=== PATIENT | male | born 1950 | race Caucasian/White ===

== ENCOUNTER 2018-12-29 11:13 | Outpatient (CLI) | payer MEDICARE, SELFPAY ==
[2018-12-29 12:22] LABS: BUN 19 mg/dL (7-18); CREATININE 1.08 mg/dL (0.70-1.30); Calcium 8.5 mg/dL (8.5-10.1); Chloride 102 mmol/L (98-107); Glucose 120 mg/dL (70-100); Potassium 4.2 mmol/L (3.5-5.1); Sodium 141 mmol/L (136-145)
== END 2018-12-29 11:33 ==
PROVIDERS: PCP Family Medicine; Visit Provider Family Medicine
DX: G89.4 Chronic pain syndrome (principal)
CPT/HCPCS: 36415; 80048

== ENCOUNTER 2019-09-06 16:43 | Emergency (ER) | payer MEDICARE, SELFPAY ==
[2019-09-06 16:48] VITALS: BP 151/77; PULSE 83; RESP 18; TEMP 37.1; O2SAT 98
--- NOTE | 2019-09-06 17:04 | W.ED.GENAD ---
Discharge Plan Disposition Patient Disposition: HOME Condition: Stable Discharge Details Chief Complaint: Cellulitis Clinical Impression: Cellulitis of face Primary Care Provider: Clark Odom ED Provider: Eliu Banerjee Home Meds and New Rx's Prescriptions: New amoxicillin-pot clavulanate 875-125 mg tablet 1 tab PO BID 10 Days Qty: 20 RF: 0 Continued hydrocodone-acetaminophen 5-325 mg tablet 1 tab PO BID MDD 2 tabs PRN (Reason: pain) Qty: 60 RF: 0 Pulmicort Flexhaler 180 mcg/actuation aerosol powdr breath activated 180 mcg Inhalation BID PRNRF: 0 triamcinolone acetonide 0.1 % cream 1 applic Topical BID PRN (Reason: dermatitis) Qty: 30 RF: 4 albuterol sulfate [ProAir HFA] 8.5 GM HFA aerosol inhaler 2 puff Inhalation Q6H PRN Qty: 1 RF: 4 (DME) Aerochamber Plus Flow-Vu 1 EACH spacer 1 ea Miscellaneous PRN Qty: 2 RF: 0 Discharge Instructions Instructions: Cellulitis (ED) Additional Instructions: Follow-up with Dr. Odom if not improving in 7 days time. Apply mupirocin ointment to affected area of face twice daily Take antibiotics as prescribed. I recommend you have once daily, midday live culture yogurt or an tjqz-hzl-ywqquel probiotic while on the Augmentin. May apply warm heat to area to speed healing. Return to the emergency department for any acute concerns. Medical Decision Making 69-year-old male with chronically dry skin which he typically treats with topical ointments and oils. Now here with day 2 of left face swelling primarily at his cheek with associated overlying erythema. Is not had fever, chills, no vesicular or blistering rash. No change to voice, no intraoral lesions. His vital signs are notable for mild elevation of the blood pressure but otherwise normal. Consistent with an early cellulitis. He is not a diabetic and it is not well demarcated like erysipelas. I will treat with topical mupirocin as well as a course of Augmentin. He will follow-up with Dr. Odom in clinic if not improving, return for worsening. HPI General Mode of arrival: ambulatory. Date/Time Provider Initiated Documentation: 09/06/19 16:45. Limitations to Documentation: no limitations. Information obtained by: patient. History of Present Illness 69 year old M presents to the emergency department with the chief complaint of Left face erythema at cheek, described as mild, Quality is described as constant, and is localized to the face and left. Patient reports no radiation. Patient started experiencing this day(s) and it has been constant. No relieving factors improve symptom(s), No exacerbating factors reported . Patient notes no other symptoms. and other (No blistering or vesicles, no significant pain); denies fever/chills and headaches. Patient did receive the following treatments prior to arrival, none Related Data Home Medications Medication Instructions Recorded Confirmed Aerochamber Plus Flow-Vu #2 unit 08/28/17 04/09/19 albuterol sulfate [ProAir HFA] 2 puff INHALATION Q6H PRN #1 08/28/17 09/06/19 inhaler budesonide 180 mcg/actuation 180 mcg INHALATION BID PRN inhaler 07/03/18 04/09/19 breath activated powder inhaler triamcinolone acetonide 0.1 % 1 applic TOPICAL BID PRN #30 gm 07/03/18 09/06/19 topical cream hydrocodone 5 mg-acetaminophen 325 1 tab PO BID PRN #60 tab MDD 2 tabs 07/10/19 09/06/19 mg tablet amoxicillin-pot clavulanate 1 tab PO BID 10 Days #20 tab 09/06/19 Previous Rx's Medication Instructions Recorded Aerochamber Plus Flow-Vu #2 unit 08/28/17 albuterol sulfate [ProAir HFA] 2 puff INHALATION Q6H PRN #1 08/28/17 inhaler triamcinolone acetonide 0.1 % 1 applic TOPICAL BID PRN #30 gm 07/03/18 topical cream hydrocodone 5 mg-acetaminophen 325 1 tab PO BID PRN #60 tab MDD 2 tabs 07/10/19 mg tablet amoxicillin-pot clavulanate 1 tab PO BID 10 Days #20 tab 09/06/19 Allergies Allergy/AdvReac Type Severity Reaction Status Date / Time prednisone AdvReac Intermediate hair Verified 09/06/19 16:52 loss/lethargic codeine AdvReac Mild makes me a Verified 09/06/19 16:52 little hot General Stated Complaint: Cellulitis DEANNA: 3 Review of Systems Narrative: 6 systems reviewed and otherwise negative. No change to vision, no oral pain or swelling. [facility] Family History Mother , AGE 73 Substance abuse VALIUM Essential hypertension Depression Heart disease Hyperlipidemia Asthma Father , AGE 72 Alcohol abuse Prostate cancer Sister Substance abuse MARIJUANA Depression Hyperlipidemia Schizophrenia Brother Heart disease Asthma Maternal Grandfather Heart disease Stroke Paternal Grandfather Heart disease Maternal Grandmother Diabetes Bladder cancer Paternal Grandmother Heart disease Sister Substance abuse MARIJUANA Anxiety Smoker Brother Heart disease Stroke MINI STROKE Brother , AGE 67 No problems noted. Brother , AGE 70 Agent orange exposure Asthma Social History (Updated 10/08/18 @ 08:11 by Elizabet Batista) Smoking/Tobacco Use Status: Never Second Hand Exposure: Yes Alcohol Intake: former Drug use: Current Sobriety Substance use type: former substance user Date of last use: FORMER NARIJUANA USE;AGE 36 10/04/17 THINKING ABOUT IT AGAIN Caregiver/Support person: No Household members: none Housing: apartment Pets and animals: No Sexually active: No Do you think of yourself as: bisexual Current gender identity: male Duration: 60-90 minutes/day Frequency: 5-6 times per week Gilda/Lutheran: Congregation Special gilda needs: No Do you feel safe at home: Yes Exam Narrative Exam Narrative: GEN: awake, alert, oriented 3. Pleasant, well groomed, interactive. HEAD: Normocephalic, atraumatic ENT: Mucous membranes moist, oropharynx unremarkable, edentulous. Left cheek with erythema and mild induration, no pointing fluctuance, no vesicles. EYES: PERRL, EOMI NECK: Full ROM, no RANDI, no menigismus CHEST/RESP: Nontender, clear to auscultation bilateral, no wheeze/rhonchi/rales CARDIOVASCULAR: RRR, no murmur, rub rebekah. 2+ Rad pulse bilateral ABDOMEN: Soft, nontender, no mass. +Bowel sounds EXT: Full ROM, no edema, no rash Neuro: Grossly normal neurologic exam, conversant, interactive. Psych: Speech fluent, thoughts congruent, affect normal Course Vital Signs Vital signs: Vital Signs Temperature 37.1 C 09/06/19 16:48 Pulse 83 09/06/19 16:48 Respiratory Rate 18 09/06/19 16:48 Blood Pressure 151/77 H 12/22/19 16:48 Pulse Oximetry 98 09/06/19 16:48 Temperature 37.1 C 09/06/19 16:48 Temperature Source Skin 09/06/19 16:48 Pulse 83 09/06/19 16:48 Respiratory Rate 18 09/06/19 16:48 Respiratory Effort Non-Labored 09/06/19 16:51 Blood Pressure 151/77 H 09/06/19 16:48 Blood Pressure Position Sitting 09/06/19 16:48 Pulse Oximetry 98 09/06/19 16:48 Oxygen Delivery Method Room Air 09/06/19 16:48 Oxygen Flow Rate 0 09/06/19 16:48 Pain Level 4 09/06/19 16:48
[2019-09-06] MEDS: Amox. 875/Clav. 125, 2 TABS/BTL 1 TAB PO (17:15)
== END 2019-09-06 17:25 | disposition home or self-care (01) ==
PROVIDERS: Emergency Provider Emergency Medicine; PCP Family Medicine
DX: L03.211 Cellulitis of face (principal)
CPT/HCPCS: 99283

== ENCOUNTER 2020-06-23 15:11 | Emergency (ER) | payer MEDICARE, SELFPAY ==
--- NOTE | 2020-06-23 15:15 | DI.US_ITS ---
EXAM: US LOWER EXTREMITY VENOUS RT CLINICAL HISTORY: RLE swelling, R/O DVT. TECHNIQUE: Ultrasound performed using standard protocol. COMPARISON: No exams were available for comparison FINDINGS: Duplex venous ultrasound was performed according to the usual protocol. The deep veins are freely com pressible throughout and there is normal flow augmentation with manual calf compression. 2D and Doppl er evaluation are unremarkable. IMPRESSION: No evidence of deep venous thrombosis of the right lower extremity. DATA REPOSITORY:
[2020-06-23 15:16] VITALS: BP 146/79; PULSE 81; RESP 16; TEMP 36.3; O2SAT 100
--- NOTE | 2020-06-23 15:34 | ED.GENADUL_ITS ---
Discharge Plan Disposition Patient Disposition: HOME Condition: Improving Discharge Details Clinical Impression: Cellulitis of right leg Primary Care Provider: John Oakes ED Provider: Eliu Banerjee Home Meds and New Rx's Prescriptions: New cephalexin 500 mg capsule 500 mg PO TID 7 Days Qty: 21 RF: 0 Continued hydrocodone-acetaminophen 5-325 mg tablet 1 tab PO BID MDD 2 tabs PRN (Reason: pain) Qty: 60 RF: 0 Pulmicort Flexhaler 180 mcg/actuation aerosol powdr breath activated 180 mcg Inhalation BID PRNRF: 0 triamcinolone acetonide 0.1 % cream 1 applic Topical BID PRN (Reason: dermatitis) Qty: 30 RF: 4 albuterol sulfate [ProAir HFA] 8.5 GM HFA aerosol inhaler 2 puff Inhalation Q6H PRN Qty: 1 RF: 4 (DME) Aerochamber Plus Flow-Vu 1 EACH spacer 1 ea Miscellaneous PRN Qty: 2 RF: 0 Discharge Instructions Instructions: Cellulitis (ED) Additional Instructions: You do not have evidence of a blood clot on today's ultrasound. Please take the antibiotics as prescribed. Elevate the leg above the level heart to reduce swelling. Leave the current dressing in place for 7 days and then remove and may replace with simple Band-Aid. Return if you develop chest pain, shortness of breath, a fever, or any other acute concerns. Medical Decision Making 70-year-old male presents from home with right lower extremity erythema and swelling over days time. He noticed a ulcerated area that he question could be a spider bite or other insect bite but no known inciting event was appreciated by the patient. He has not had a fever. He has not had chest pain or shortness of breath. He is well-appearing and afebrile. His right lower extremity shows the aforementioned ulceration with surrounding erythema and edema. Differential diagnosis includes cellulitis, must exclude DVT. Screening labs and ultrasound obtained. Patient given a initial dose of Kefzol and a Mepilex dressing with border was placed over the ulcerated area. Labs with white count 8, hematocrit 46, platelets 243. Lactate 1.5. Sodium 142, potassium 3.6, chloride 103, bicarb 30, BUN 15, creatinine 1.2. Ultrasound: No evidence of DVT. Consistent with cellulitis secondary to breakdown of skin from unknown initial event. I will place him on Keflex. He is appropriate for outpatient management and understands indications to return to the ER. HPI General Mode of arrival: ambulatory . Date/Time Provider Initiated Documentation: 06/23/20 15:23 . Limitations to Documentation: no limitations . Information obtained by: patient . History of Present Illness 70 year old M presents to the emergency department with the chief complaint of Right leg ankle wound, now swollen and erythematous., Quality is described as dull, and is localized to the right and lower extremity. Patient reports no radiation. Patient started experiencing this day(s) and it has been constant. No relieving factors improve symptom(s), No exacerbating factors reported . Patient notes denies chest pain, fever/chills and shortness of breath. Patient did receive the following treatments prior to arrival, none Related Data Home Medications Medication Instructions Recorded Confirmed Aerochamber Plus Flow-Vu #2 unit 08/28/17 03/31/20 albuterol sulfate [ProAir HFA] 2 puff INHALATION Q6H PRN #1 08/28/17 06/23/20 inhaler budesonide 180 mcg/actuation 180 mcg INHALATION BID PRN inhaler 07/03/18 06/23/20 breath activated powder inhaler triamcinolone acetonide 0.1 % 1 applic TOPICAL BID PRN #30 gm 07/03/18 06/23/20 topical cream hydrocodone 5 mg-acetaminophen 325 1 tab PO BID PRN #60 tab MDD 2 tabs 03/31/20 06/23/20 mg tablet cephalexin 500 mg PO TID 7 Days #21 cap 06/23/20 Previous Rx's Medication Instructions Recorded Aerochamber Plus Flow-Vu #2 unit 08/28/17 albuterol sulfate [ProAir HFA] 2 puff INHALATION Q6H PRN #1 08/28/17 inhaler triamcinolone acetonide 0.1 % 1 applic TOPICAL BID PRN #30 gm 07/03/18 topical cream hydrocodone 5 mg-acetaminophen 325 1 tab PO BID PRN #60 tab MDD 2 tabs 03/31/20 mg tablet cephalexin 500 mg PO TID 7 Days #21 cap 06/23/20 Allergies Allergy/AdvReac Type Severity Reaction Status Date / Time prednisone AdvReac Intermediate hair Verified 06/23/20 15:21 loss/lethargic codeine AdvReac Mild makes me a Verified 06/23/20 15:21 little hot General Stated Complaint: Cellulitis DEANNA: 3 Review of Systems Narrative: No chest pain or shortness of breath. No palpitations. No fever or chills. 6 systems reviewed and otherwise negative [facility] Family History Mother , AGE 73 Substance abuse VALIUM Essential hypertension Depression Heart disease Hyperlipidemia Asthma Father , AGE 72 Alcohol abuse Prostate cancer Sister , age 59 Substance abuse MARIJUANA Depression Hyperlipidemia Schizophrenia Brother Heart disease Asthma Maternal Grandfather Heart disease Stroke Paternal Grandfather Heart disease Maternal Grandmother Diabetes Bladder cancer Paternal Grandmother Heart disease Sister , age 57 Substance abuse MARIJUANA Anxiety Smoker Brother Heart disease Stroke MINI STROKE Brother , AGE 67 No problems noted. Brother , AGE 70 Agent orange exposure Asthma Social History Smoking/Tobacco Use Status: Never Second Hand Exposure: Yes Alcohol Intake: former Drug use: Current Sobriety Substance use type: former substance user Date of last use: FORMER NARIJUANA USE;AGE 36 10/04/17 THINKING ABOUT IT AGAIN Caregiver/Support person: No Household members: none Housing: apartment Communication Needs: None Do you need help understanding health information?: Never Pets and animals: No Sexually active: No Do you think of yourself as: straight/heterosexual Current gender identity: male What is your relationship status?: never How often do you talk on the phone with friends or family?: three or more times per week How often do you get together with friends or relatives?: three or more times per week How often do you attend moravian or druze services?: decline to answer Do you belong to any clubs or organized social groups?: no Panel score (0-1 are the most socially isolated patients): 1 What type of physical activity do you participate in: other Duration: decline to answer Frequency: decline to answer Gilda/Denominational: Scientologist Special gilda needs: No Seatbelt use: sometimes 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 Pleasant, well groomed, interactive. HEAD: Normocephalic, atraumatic ENT: Mucous membranes moist, oropharynx unremarkable, External ear exam unremarkable EYES: PERRL, EOMI NECK: Full ROM, no RANDI, no menigismus CHEST/RESP: Nontender, clear to auscultation bilateral, no wheeze/rhonchi/rales CARDIOVASCULAR: RRR, no murmur, rub rebekah. 2+ Rad pulse bilateral ABDOMEN: Soft, nontender, no mass. +Bowel sounds EXT: Full ROM, right lower lateral leg with scabbed over area of ulceration measuring approximately 2 cm in diameter. There is surrounding edematous changes and warm, blanching erythema of the leg below the knee. No cords appreciated. Neuro: Grossly normal neurologic exam, conversant, interactive. Psych: Speech fluent, thoughts congruent, affect normal Course Vital Signs Vital signs: Vital Signs Temperature 36.3 C L 06/23/20 15:16 Pulse 81 06/23/20 15:16 Respiratory Rate 16 06/23/20 15:16 Blood Pressure 146/79 H 06/23/20 15:16 Pulse Oximetry 100 06/23/20 15:16 Temperature 36.3 C L 06/23/20 15:16 Pulse 81 06/23/20 15:16 Respiratory Rate 16 06/23/20 15:16 Respiratory Effort Non-Labored 06/23/20 15:19 Blood Pressure 146/79 H 06/23/20 15:16 Blood Pressure Position Sitting 06/23/20 15:16 Pulse Oximetry 100 06/23/20 15:16 Oxygen Delivery Method Room Air 06/23/20 15:16 Oxygen Flow Rate 0 06/23/20 15:16 Pain Level 3 06/23/20 15:16 Lab/Test Results Lab/Test Results: 06/23/20 15:26 Blood Blood Culture - Pending 06/23/20 15:26 Blood Blood Culture - Pending
[2020-06-23 15:48] LABS: Lactate 1.5 mmol/L (0.6-1.4)
[2020-06-23 15:50] LABS: Abs Immature Grans 0.02 10^3/uL (0.0-0.06); Absolute Basophil Count 0.03 10^3/uL (0.0-0.2); Absolute Eosinophil Count 0.24 10^3/uL (0.0-0.7); Absolute Lymphocyte Count 1.72 10^3/uL (1.2-3.4); Absolute Neutrophil Count 5.43 10^3/uL (1.2-6.7); Basophils % 0.4; Eosinophils % 2.9; Immature Grans % 0.2; Lymphocytes % 21.1; MCH 28.2 pg (27.0-33.0); MCHC 32.6 % (32.0-36.0); MCV 86.6 fL (80-95); MPV 9.7 fL (8.0-11.0); Monocytes % 8.6; Neutrophils % 66.8; Nucleated RBC 0 %; Platelet Count 243 10^3/uL (130-400); RBC 5.31 10^6/uL (4.36-5.78); RDW 13.3 % (11.8-14.1); RDW-SD 42.2 fL; WBC 8.14 10^3/uL (4.4-10.8)
--- NOTE | 2020-06-23 15:54 | NUR.NOTE ---
Nursing Note:Mepilex 4x4 with border applied to right lateral leg per MD. Dated with 06/23/20 and initials.
[2020-06-23 16:04] LABS: ALT 30 U/L (16-63); AST 19 U/L (15-37); Albumin 3.8 g/dL (3.4-5.0); Alkaline Phosphatase 73 U/L (46-116); Anion Gap 8.4 mmol/L (3-11); BUN 15 mg/dL (7-18); Bilirubin, Total 0.6 mg/dL (0.2-1.0); CO2 30.6 mmol/L (21.0-32.0); CREATININE 1.25 mg/dL (0.70-1.30); Calcium 8.7 mg/dL (8.5-10.1); Chloride 103 mmol/L (98-107); Estimated GFR 57.27 (mL/min/1.73m2); Glucose 118 mg/dL (74-106); Magnesium 2.1 mg/dL (1.8-2.4); Potassium 3.6 mmol/L (3.5-5.1); Sodium 142 mmol/L (136-145); Total Protein 7.6 g/dL (6.4-8.2)
[2020-06-23] MEDS: ceFAZolin 1 GM/50 ML BAG IVPB (16:28)
[2020-06-23] MEDS: Normal Saline Flush 10 ML SYR IVP (16:29)
[2020-06-23 16:55] VITALS: BP 122/65; PULSE 69; RESP 16; TEMP 36.4; O2SAT 98
--- NOTE | 2020-06-30 16:03 | DI.VRAD_ITS ---
PROCEDURE INFORMATION: Exam: US Duplex Right Lower Extremity Veins, Limited Exam date and time: 06/23/2020 3:27 PM Age: 70 years old Clinical indication: Swelling (edema) of limb; Lower extremity, right TECHNIQUE: Imaging protocol: Real-time Duplex ultrasound of the Right Lower Extremity with 2-D jang scale, color Doppler flow and spectral waveform analysis with image documentation. Limited exam was focused on the right lower extremity veins. COMPARISON: No relevant prior studies available. FINDINGS: Right deep veins: Unremarkable. The common femoral, femoral, proximal profunda femoral and popliteal veins are patent without thrombus. Normal Doppler waveforms. Normal compressibility and/or augmentation response. Right superficial veins: Unremarkable. Saphenofemoral junction is patent without thrombus. Soft tissues: Mild edema in the right mid calf.. IMPRESSION: No evidence of deep vein thrombosis. Dictated and Authenticated by: Kaushal Busch MD. Ordering:OG Simons MD
== END 2020-06-23 17:00 | disposition home or self-care (01) ==
LOC: ER 16:28
PROVIDERS: Registered Nurse Emergency; Emergency Provider Emergency Medicine; PCP Family Medicine
DX: L03.115 Cellulitis of right lower limb (principal); L97.311 Non-pressure chronic ulcer of right ankle limited to breakdown of skin
CPT/HCPCS: 36415; 80053; 87040; 96365; 99284; 83605; 83735; 85025; 93971; J0690

== ENCOUNTER 2020-07-05 09:29 | Outpatient (REF) | payer MEDICARE, SELFPAY | END 2020-07-05 09:49 | LOC: LBN 09:29 | PROVIDERS: PCP Family Medicine; Visit Provider Family Medicine | DX: L03.115 Cellulitis of right lower limb (principal) | CPT/HCPCS: 87077; 87070; 87186; 87205 ==

== ENCOUNTER 2021-02-03 09:59 | Emergency (ER) | payer MEDICARE, SELFPAY ==
[2021-02-03 10:05] VITALS: BP 157/86; PULSE 78; RESP 18; TEMP 36.5; O2SAT 98
--- NOTE | 2021-02-03 10:34 | W.ED.GENAD ---
Discharge Plan Disposition Patient Disposition: HOME Condition: Good Discharge Details Clinical Impression: Rash and nonspecific skin eruption Primary Care Provider: Mery Peter ED Provider: Dana Archibald Home Meds and New Rx's Prescriptions: No Action albuterol sulfate [ProAir HFA] 90 mcg/actuation HFA aerosol inhaler 2 puff Inhalation Q6H PRN Qty: 1 RF: 4 valacyclovir [Valtrex] 1 gram tablet 1,000 mg PO TID Qty: 21 RF: 0 (DME) Aerochamber Plus Flow-Vu 1 EACH spacer 1 ea Miscellaneous PRN Qty: 2 RF: 0 hydrocodone-acetaminophen 5-325 mg tablet 1 tab PO BID MDD 2 tabs PRN (Reason: pain) Qty: 60 RF: 0 triamcinolone acetonide 0.1 % cream 1 applic Topical BID PRN (Reason: dermatitis) Qty: 30 RF: 4 Discharge Instructions Instructions: Acute Rash (ED) Additional Instructions: Continue to use her triamcinolone twice daily for the next 7 to 10 days You may complete your course of acyclovir, this will not harm you Should you have spreading redness, fever, or worsening pain, vision change, no pain, or ear pain, you should return immediately for reevaluation Recommend recheck in 24 to 48 hours Medical Decision Making Patient with lesions to bilateral scalp region, no evidence of shingles or herpetiform rash, no evidence of erysipelas or infection etiology of patient's complaints, nontender, improving with triamcinolone for patient Patient is alert, oriented, of decisional capacity he has no crepitus on exam, he reports that his symptoms are improving with triamcinolone although he will complete his course of acyclovir as he only has 2 days left Follow-up with his primary care physician, there is no evidence of Carranza sign or ocular involvement Patient will follow up with his primary care physician, given the threshold to return with new or worsening complaints Differential Diagnosis Differential Diagnosis: Contact dermatitis, cellulitis, shingles, seborrhea Medical Records Medical records reviewed: Yes I reviewed the patient's medical records. HPI General Mode of arrival: ambulatory. Date/Time Provider Initiated Documentation: 02/03/21 10:06. Limitations to Documentation: no limitations. Information obtained by: patient. HPI Narrative: This 71-year-old male presents with history of eczema. He states that he started rash that started approximately 7 days ago. He states is on the left side of scalp. He did see his doctor 3 days ago and was placed on Valtrex for suspected zoster. If he is unsure as to whether or not actually is shingles. He states he had no pain or paresthesias prior to onset of symptoms. He states that the rash has never been raised. He denies any fever or chills. He otherwise feels quite fine. He has no pain in his ear or nose. He has no pain in his eye. He states he has a history of eczema and frequently have interruptions from this. He states he also has some redness on the right side of his scalp with this. He denies any pruritus. He states he has been using triamcinolone twice daily at home and this is actually improved his symptoms. He denies any known sick contacts people with similar rashes. He denies any headache or spreading rash. Related Data Home Medications Medication Instructions Recorded Confirmed Aerochamber Plus Flow-Vu #2 unit 08/28/17 01/09/21 albuterol sulfate 90 mcg/actuation 2 puff INHALATION Q6H PRN #1 08/09/20 02/03/21 aerosol inhaler inhaler hydrocodone 5 mg-acetaminophen 325 1 tab PO BID PRN #60 tab MDD 2 tabs 01/16/21 02/03/21 mg tablet triamcinolone acetonide 0.1 % 1 applic TOPICAL BID PRN #30 gm 01/27/21 02/03/21 topical cream valacyclovir 1 gram tablet 1,000 mg PO TID #21 tab 02/01/21 02/03/21 Previous Rx's Medication Instructions Recorded Aerochamber Plus Flow-Vu #2 unit 08/28/17 albuterol sulfate 90 mcg/actuation 2 puff INHALATION Q6H PRN #1 08/09/20 aerosol inhaler inhaler hydrocodone 5 mg-acetaminophen 325 1 tab PO BID PRN #60 tab MDD 2 tabs 01/16/21 mg tablet triamcinolone acetonide 0.1 % 1 applic TOPICAL BID PRN #30 gm 01/27/21 topical cream valacyclovir 1 gram tablet 1,000 mg PO TID #21 tab 02/01/21 Allergies Allergy/AdvReac Type Severity Reaction Status Date / Time prednisone AdvReac Intermediate hair Verified 02/03/21 10:11 loss/lethargic codeine AdvReac Mild makes me a Verified 02/03/21 10:11 little hot General Stated Complaint: Cellulitis DEANNA: 5 Review of Systems Narrative: Review of systems obtained x7 aside from where indicated in HPI PFSH Family History Mother , AGE 73 Substance abuse VALIUM Essential hypertension Depression Heart disease Hyperlipidemia Asthma Father , AGE 72 Alcohol abuse Prostate cancer Sister , age 59 Substance abuse MARIJUANA Depression Hyperlipidemia Schizophrenia Brother Heart disease Asthma Maternal Grandfather Heart disease Stroke Paternal Grandfather Heart disease Maternal Grandmother Diabetes Bladder cancer Paternal Grandmother Heart disease Sister , age 57 Substance abuse MARIJUANA Anxiety Smoker Brother Heart disease Stroke MINI STROKE Brother , AGE 67 No problems noted. Brother , AGE 70 Agent orange exposure Asthma Social History Smoking/Tobacco Use Status: Never Second Hand Exposure: Yes Smoking risk assessment performed?: Yes Alcohol Intake: former Drug use: Current Sobriety Substance use type: former substance user Date of last use: FORMER NARIJUANA USE;AGE 36 10/04/17 THINKING ABOUT IT AGAIN Caregiver/Support person: No Household members: none Housing: apartment Communication Needs: None Do you need help understanding health information?: Never Pets and animals: No Sexually active: No Do you think of yourself as: straight/heterosexual Current gender identity: male What is your relationship status?: never How often do you talk on the phone with friends or family?: three or more times per week How often do you get together with friends or relatives?: three or more times per week How often do you attend pentecostalism or spiritism services?: decline to answer Do you belong to any clubs or organized social groups?: no Panel score (0-1 are the most socially isolated patients): 1 What type of physical activity do you participate in: other Duration: decline to answer Frequency: decline to answer Gilda/Methodist: Adventist Special gilda needs: No Seatbelt use: sometimes Drive intox or ride w/intox lumber stacker driver: No Do you feel safe at home: Yes Do you feel safe in your relationship?: Yes Exam Const General: cooperative, comfortable and no acute distress HENMT Head images: 1. Macular rash, nontender, seborrhea over bilateral temples, no vesicles, no petechiae or purpura no lesions to ear or nose no periorbital lesion 2. Eyes Other: No conjunctival injection bilaterally Resp Effort & Inspection: normal respiratory effort Cardio Rate: regular rate Rhythm: regular rhythm Skin Other: see above no crepitus or tenderness on exam Neuro General: patient alert and patient oriented x3 Cranial Nerves: CN's II-XI intact bilaterally Course Vital Signs Vital signs: Vital Signs Temperature 36.5 C 02/03/21 10:05 Pulse 78 02/03/21 10:05 Respiratory Rate 18 02/03/21 10:05 Blood Pressure 157/86 H 02/03/21 10:05 Pulse Oximetry 98 02/03/21 10:05 Temperature 36.5 C 02/03/21 10:05 Temperature Source Skin 02/03/21 10:05 Pulse 78 02/03/21 10:05 Respiratory Rate 18 02/03/21 10:05 Respiratory Effort 02/03/21 10:10 Blood Pressure 157/86 H 02/03/21 10:05 Blood Pressure Position Sitting 02/03/21 10:05 Pulse Oximetry 98 02/03/21 10:05 Oxygen Delivery Method Room Air 02/03/21 10:05 Oxygen Flow Rate 0 02/03/21 10:05 Pain Level 0 02/03/21 10:05
== END 2021-02-03 10:41 | disposition home or self-care (01) ==
PROVIDERS: Emergency Provider Physician Assistant; PCP Nurse Practitioner Family
DX: R21 Rash and other nonspecific skin eruption (principal)
CPT/HCPCS: 99281; 99282

== ENCOUNTER 2021-07-05 17:18 | Outpatient (REF) | payer MEDICARE, SELFPAY ==
[2021-07-07 14:50] LABS: COVID-19 RT-PCR UVMMC Result Negative (Negative)
== END 2021-07-05 17:19 | disposition home or self-care (01) ==
LOC: LBN 17:18
PROVIDERS: Nurse Practitioner Family; PCP Nurse Practitioner Family; Visit Provider Nurse Practitioner Family
DX: Z20.822 Contact with and (suspected) exposure to COVID-19 (principal)
CPT/HCPCS: U0003; U0005

== ENCOUNTER 2021-07-11 11:04 | Emergency (ER) | payer MEDICARE, SELFPAY ==
[2021-07-11 11:18] VITALS: BP 137/67; PULSE 62; RESP 16; TEMP 36.9; O2SAT 98
--- NOTE | 2021-07-11 11:25 | W.ED.GENAD ---
Discharge Plan Disposition Patient Disposition: HOME Condition: Stable Discharge Details Clinical Impression: Contact dermatitis Primary Care Provider: Mery Peter ED Provider: Katt Dukes Home Meds and New Rx's Prescriptions: New cephalexin 500 mg capsule 500 mg PO TID 7 Days Qty: 21 RF: 0 methylprednisolone [Medrol ([place])] 4 mg tablets,dose pack 4 mg PO PER PKG DIR MDD see package directions 6 Days Qty: 21 RF: 0 hydrocortisone 2.5 % cream 1 applic topical TID PRNQty: 30 RF: 0 Continued Narcan 4 mg/actuation spray,non-aerosol 1 spray intranasal Q2-3M PRN (Reason: opioid overdose) Qty: 2 RF: 4 albuterol sulfate [ProAir HFA] 90 mcg/actuation HFA aerosol inhaler 2 puff Inhalation Q6H PRN Qty: 1 RF: 4 (DME) Aerochamber Plus Flow-Vu 1 EACH spacer 1 ea Miscellaneous PRN Qty: 2 RF: 0 triamcinolone acetonide 0.1 % cream 1 applic Topical BID PRN (Reason: dermatitis) Qty: 30 RF: 4 clotrimazole 1 % cream 1 applic topical BID Qty: 90 RF: 2 hydrocodone-acetaminophen 5-325 mg tablet 1 tab PO BID MDD 2 tabs PRN (Reason: pain) Qty: 60 RF: 0 Discharge Instructions Instructions: Dermatitis (ED) Additional Instructions: Try to avoid any direct contact with possible skin irritants including chemicals or prolonged exposure to water as this may worsen your rash. If you need to have contact with chemicals or prolonged contact with water, be sure to wear protective nonadherent dressings directly to your rash with thick overlying rubber gloves. Prescriptions for an oral steroid, and oral antibiotic and topical steroid cream have been sent electronically to your pharmacy. Follow up with your primary care doctor in 1 week as needed. Return to the emergency department with any worsening or new concerning symptoms. 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 Patient has erythematous scaly patches noted to his dorsal and volar hand, some areas minimally tender. No abscess or vesicles. No burrowing lesions. Suspect most likely contact dermatitis. Patient has an adverse reaction to prednisone which causes hair loss and lethargy. Discussed that as he has had no relief with topical steroids, will recommend a short course of oral steroids. Will treat with a Medrol Dosepak which is lower dosage than prednisone. Patient is advised that if he has any adverse reactions to the Medrol Dosepak, to stop taking it. Advised that the most important treatment or preventative measure for his rash is to avoid contact with a potential source if possible, or wear gloves if can't avoid exposure to irritant. Advised to follow up with the primary care doctor for re-evaluation. Usual and customary return precautions given prior to discharge. Medical Records Medical records reviewed: Yes I reviewed the patient's medical records. HPI General Mode of arrival: ambulatory. Date/Time Provider Initiated Documentation: 07/11/21 11:25. Limitations to Documentation: no limitations. Information obtained by: patient. HPI Narrative: Patient is a 71-year-old male who presents with itchy and painful rash to his hands for the past few weeks. 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 He states he has tried using his triamcinolone and anti-fungal cream without relief. Patient denies fever. He states the rash is mainly easy but does feel some pain with scratching at times. Related Data Home Medications Medication Instructions Recorded Confirmed Aerochamber Plus Flow-Vu #2 unit 08/28/17 07/11/21 triamcinolone acetonide 0.1 % 1 applic TOPICAL BID PRN #30 gm 01/27/21 07/11/21 topical cream naloxone 4 mg/actuation nasal spray 1 spray INTRANASAL Q2-3M PRN #2 ea 04/06/21 07/11/21 clotrimazole 1 % topical cream 1 applic TOPICAL BID #90 g 06/12/21 07/11/21 hydrocodone 5 mg-acetaminophen 325 1 tab PO BID PRN #60 tab MDD 2 tabs 06/19/21 07/11/21 mg tablet albuterol sulfate 90 mcg/actuation 2 puff INHALATION Q6H PRN #1 07/05/21 07/11/21 aerosol inhaler inhaler cephalexin 500 mg PO TID 7 Days #21 cap 07/11/21 hydrocortisone 1 applic TOPICAL TID PRN #30 g 07/11/21 methylprednisolone [Medrol ([place])] 4 mg PO PER PKG DIR 6 Days #21 07/11/21 dose pk MDD see package directions Previous Rx's Medication Instructions Recorded Aerochamber Plus Flow-Vu #2 unit 08/28/17 triamcinolone acetonide 0.1 % 1 applic TOPICAL BID PRN #30 gm 01/27/21 topical cream naloxone 4 mg/actuation nasal spray 1 spray INTRANASAL Q2-3M PRN #2 ea 04/06/21 clotrimazole 1 % topical cream 1 applic TOPICAL BID #90 g 06/12/21 hydrocodone 5 mg-acetaminophen 325 1 tab PO BID PRN #60 tab MDD 2 tabs 06/19/21 mg tablet albuterol sulfate 90 mcg/actuation 2 puff INHALATION Q6H PRN #1 07/05/21 aerosol inhaler inhaler cephalexin 500 mg PO TID 7 Days #21 cap 07/11/21 hydrocortisone 1 applic TOPICAL TID PRN #30 g 07/11/21 methylprednisolone [Medrol ([place])] 4 mg PO PER PKG DIR 6 Days #21 07/11/21 dose pk MDD see package directions Allergies Allergy/AdvReac Type Severity Reaction Status Date / Time prednisone AdvReac Intermediate hair Verified 07/11/21 11:22 loss/lethargic codeine AdvReac Mild makes me a Verified 07/11/21 11:22 little hot General Stated Complaint: RashLesion DEANNA: 4 Review of Systems All systems reviewed & are unremarkable except as noted in HPI and below Constitutional Constitutional: Reports as per HPI, Denies chills and Denies fever(s) Eyes Eyes: Denies blurry vision ENT Ears, Nose, Mouth, and Throat: Denies dizziness, Denies sore throat and Denies throat swelling Cardiovascular Cardiovascular: Denies chest pain and Denies dyspnea Respiratory Respiratory: Denies cough and Denies dyspnea Gastrointestinal Gastrointestinal: Denies abdominal pain, Denies diarrhea and Denies vomiting Genitourinary Genitourinary: Denies hematuria and Denies dysuria Musculoskeletal Musculoskeletal: Denies back pain and Denies numbness Integumentary/Breasts Skin/Breast: Reports lesions and Reports rash Neurologic Neurologic: Denies dizziness, Denies localized weakness and Denies numbness Allergic/Immunologic Allergic/Immunologic: Denies throat swelling PFSH Medical History Alopecia Degenerative joint disease (DJD) of lumbar spine Depressive disorder Mild intermittent asthma Family History Mother , AGE 73 Substance abuse VALIUM Essential hypertension Depression Heart disease Hyperlipidemia Asthma Father , AGE 72 Alcohol abuse Prostate cancer Sister , age 59 Substance abuse MARIJUANA Depression Hyperlipidemia Schizophrenia Brother Heart disease Asthma Maternal Grandfather Heart disease Stroke Paternal Grandfather Heart disease Maternal Grandmother Diabetes Bladder cancer Paternal Grandmother Heart disease Sister , age 57 Substance abuse MARIJUANA Anxiety Smoker Brother Heart disease Stroke MINI STROKE Brother , AGE 67 No problems noted. Brother , AGE 70 Agent orange exposure Asthma Social History Smoking/Tobacco Use Status: Never Second Hand Exposure: Yes Smoking risk assessment performed?: Yes Alcohol Intake: former Drug use: Current Sobriety Substance use type: former substance user Date of last use: FORMER NARIJUANA USE;AGE 36 10/04/17 THINKING ABOUT IT AGAIN Caregiver/Support person: No Household members: none Housing: apartment Communication Needs: None Do you need help understanding health information?: Never Pets and animals: No Sexually active: No Do you think of yourself as: straight/heterosexual Current gender identity: male What is your relationship status?: never How often do you talk on the phone with friends or family?: three or more times per week How often do you get together with friends or relatives?: three or more times per week How often do you attend synagogue or restoration services?: decline to answer Do you belong to any clubs or organized social groups?: no Panel score (0-1 are the most socially isolated patients): 1 What type of physical activity do you participate in: other Duration: decline to answer Frequency: decline to answer Gilda/Mandaen: Gnosticist Special gilda needs: No Seatbelt use: sometimes Drive intox 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 Do you feel safe at home: Yes Do you feel safe in your relationship?: Yes Exam Const General: cooperative and no acute distress HENMT Head: normal to inspection Eyes General: appearance normal, both eyes and all related structures EOM: EOM intact bilaterally Neck Neck: normal visual inspection Resp Effort & Inspection: normal respiratory effort and able to speak in complete sentences Cardio Rate: regular rate Neuro General: patient alert, patient awake and patient oriented x3 Cognition: normal cognition Speech: speech normal Motor: muscle tone normal throughout Sensory Exam: no sensory deficits noted Extrem General: normal to inspection, full ROM, capillary refill normal, no calf tenderness bilaterally and no edema Hand/finger images: 1. Erythematous scaly patches located on dorsum of hands and in webspaces. 2. Erythematous scaly patches located on dorsum of hands and in webspaces. 3. Erythematous scaly patches located on dorsum of hands and in webspaces. 4. Erythematous scaly patches located on dorsum of hands and in webspaces. Psych Appearance: grossly normal Mental Status: mental status grossly normal Speech and Movement: speech and movement normal Affect: normal affect Course Vital Signs Vital signs: Vital Signs Temperature 98.4 F 07/11/21 11:18 Pulse 62 07/11/21 11:18 Respiratory Rate 16 07/11/21 11:18 Blood Pressure 137/67 07/11/21 11:18 Pulse Oximetry 98 07/11/21 11:18 Temperature 98.4 F 07/11/21 11:18 Temperature Source Skin 07/11/21 11:18 Pulse 62 07/11/21 11:18 Respiratory Rate 16 07/11/21 11:18 Respiratory Effort Non-Labored 07/11/21 11:18 Blood Pressure 137/67 07/11/21 11:18 Blood Pressure Position Sitting 07/11/21 11:18 Pulse Oximetry 98 07/11/21 11:18 Oxygen Delivery Method Room Air 07/11/21 11:18 Oxygen Flow Rate 0 07/11/21 11:18 Pain Level 0 07/11/21 11:18
== END 2021-07-11 12:12 | disposition home or self-care (01) ==
PROVIDERS: Emergency Provider Physician Assistant; PCP Nurse Practitioner Family
DX: L25.8 Unspecified contact dermatitis due to other agents (principal); L25.9 Unspecified contact dermatitis, unspecified cause
CPT/HCPCS: 99283

== ENCOUNTER 2021-11-30 18:48 | Outpatient (REF) | payer MEDICARE, SELFPAY ==
[2021-11-30 13:45] LABS: *AMPHETAMINES SCREEN URINE Negative (Negative); *BARBITURATES SCREEN URINE Negative (Negative); *BENZODIAZEPINES SCREEN URINE Negative (Negative); Cannabinoids THC Negative (Negative); Cocaine Screen,Urine Negative (Negative); METHADONE URINE SCREEN Negative (Negative); OPIATES URINE SCREEN Positive (Negative)
[2021-11-30 13:48] LABS: Tricyclic Antidepressants Negative (Negative)
== END 2021-11-30 18:49 | disposition home or self-care (01) ==
LOC: LBN 18:48
PROVIDERS: PCP Nurse Practitioner Family; Visit Provider Nurse Practitioner Family
DX: G89.4 Chronic pain syndrome (principal); Z79.891 Long term (current) use of opiate analgesic; Z79.899 Other long term (current) drug therapy
CPT/HCPCS: 80307

== ENCOUNTER 2022-02-22 12:55 | Outpatient (CLI) | payer MEDICARE, SELFPAY ==
[2022-02-22 17:11] LABS: Hemoglobin A1C 6.2 % (<5.7)
[2022-02-22 17:24] LABS: Anion Gap 8.9 mmol/L (3-11); BUN 18 mg/dL (7-18); CO2 28.1 mmol/L (21.0-32.0); CREATININE 1.2 mg/dL (0.70-1.30); Calcium 8.4 mg/dL (8.5-10.1); Calculated LDL 85 mg/dL (<100); Chloride 104 mmol/L (98-107); Cholesterol 145 mg/dL (<200); Estimated GFR 59.68 (mL/min/1.73m2); Glucose 108 mg/dL (74-106); HDL Cholesterol 47 mg/dL (40-60); Sodium 141 mmol/L (136-145); Triglyceride 69 mg/dL (<150)
[2022-02-23 17:59] LABS: PSA, Screening 1.4 ng/mL (<=6.5)
== END 2022-02-22 12:56 | disposition home or self-care (01) ==
LOC: LBO 12:58
PROVIDERS: PCP Nurse Practitioner Family; Visit Provider Nurse Practitioner Family
DX: R73.01 Impaired fasting glucose (principal); N40.0 Benign prostatic hyperplasia without lower urinary tract symptoms; Z12.5 Encounter for screening for malignant neoplasm of prostate
CPT/HCPCS: 36415; 80048; 80061; 84153; 83036

== ENCOUNTER 2022-08-22 11:52 | Outpatient (REF) | payer MEDICARE, SELFPAY ==
[2022-08-22 13:28] LABS: *AMPHETAMINES SCREEN URINE Negative (Negative); *BARBITURATES SCREEN URINE Negative (Negative); *BENZODIAZEPINES SCREEN URINE Negative (Negative); Cannabinoids THC Negative (Negative); Cocaine Screen,Urine Negative (Negative); METHADONE URINE SCREEN Negative (Negative); OPIATES URINE SCREEN Positive (Negative)
[2022-08-22 13:47] LABS: Tricyclic Antidepressants Negative (Negative)
== END 2022-08-22 11:53 | disposition home or self-care (01) ==
LOC: LBN 11:52
PROVIDERS: PCP Nurse Practitioner Family; Visit Provider Nurse Practitioner Family
DX: Z79.891 Long term (current) use of opiate analgesic; G89.4 Chronic pain syndrome; M47.816 Spondylosis without myelopathy or radiculopathy, lumbar region
CPT/HCPCS: 80307

== ENCOUNTER 2022-09-06 01:12 | Outpatient (CLI) | payer MEDICARE, SELFPAY ==
--- NOTE | 2022-09-06 07:30 | DI.US_ITS ---
Exam(s) US LOWER EXTREMITY VENOUS RT EXAM: US LOWER EXTREMITY VENOUS RT CLINICAL HISTORY: rt leg and calfpain, [id number]. TECHNIQUE: Lower extremity venous ultrasound performed using grayscale, color-flow, and spectral Do ppler analysis. COMPARISON: No exams were available for comparison FINDINGS: The common femoral, femoral and popliteal veins demonstrate normal compressibility, augmentation, and color Doppler. The posterior tibial veins are patent. No saphenous vein thrombosis or other superfi cial venous thrombosis is seen. No hematoma or Baxter's cyst is seen. IMPRESSION: Negative lower extremity ultrasound. No evidence of DVT. DATA REPOSITORY:
== END 2022-09-06 01:32 ==
LOC: DI 01:12
PROVIDERS: PCP Nurse Practitioner Family; Visit Provider Physician Assistant
DX: M79.604 Pain in right leg (principal)
CPT/HCPCS: 93971

== ENCOUNTER 2023-08-28 11:48 | Outpatient (REF) | payer MEDICARE, SELFPAY ==
[2023-08-28 13:51] LABS: *AMPHETAMINES SCREEN URINE Negative (Negative); *BARBITURATES SCREEN URINE Negative (Negative); *BENZODIAZEPINES SCREEN URINE Negative (Negative); Cannabinoids THC Negative (Negative); Cocaine Screen,Urine Negative (Negative); METHADONE URINE SCREEN Negative (Negative); OPIATES URINE SCREEN Positive (Negative)
[2023-08-28 13:56] LABS: Tricyclic Antidepressants Negative (Negative)
== END 2023-08-28 11:49 | disposition home or self-care (01) ==
LOC: LBN 11:48
PROVIDERS: PCP Nurse Practitioner Family; Visit Provider Nurse Practitioner Family
DX: G89.4 Chronic pain syndrome (principal)
CPT/HCPCS: 80307

== ENCOUNTER 2023-10-21 12:01 | Outpatient (CLI) | payer MEDICARE, SELFPAY ==
[2023-10-21 11:01] LABS: ALT 18 U/L (16-63); AST 16 U/L (15-37); Albumin 3.5 g/dL (3.4-5.0); Alkaline Phosphatase 65 U/L (46-116); Anion Gap 5.7 mmol/L (3-11); BUN 14 mg/dL (7-18); Bilirubin, Total 0.6 mg/dL (0.2-1.0); CO2 30.3 mmol/L (21.0-32.0); Calcium 8.3 mg/dL (8.5-10.1); Chloride 106 mmol/L (98-107); Estimated GFR 79.97 (mL/min/1.73m2); Glucose 100 mg/dL (74-106); Potassium 3.7 mmol/L (3.5-5.1); Sodium 142 mmol/L (136-145); Total Protein 7.1 g/dL (6.4-8.2)
[2023-10-21 11:29] LABS: Hemoglobin A1C 5.9 % (<5.7)
[2023-10-21 17:48] LABS: PSA, Screening 1.6 ng/mL (<=6.5)
[2023-10-21 18:32] LABS: Hepatitis C Ab w Rflx HCV PCR Negative (Negative)
== END 2023-10-21 12:02 | disposition home or self-care (01) ==
LOC: LBO 12:01
PROVIDERS: PCP Nurse Practitioner Family; Visit Provider Nurse Practitioner Family
DX: Z00.00 Encounter for general adult medical examination without abnormal findings (principal); R73.03 Prediabetes; Z12.5 Encounter for screening for malignant neoplasm of prostate
CPT/HCPCS: 36415; 80053; 84153; 86803; 83036

== ENCOUNTER 2024-05-16 13:57 | Outpatient (CLI) | payer MEDICARE, SELFPAY ==
--- NOTE | 2024-05-16 15:45 | DI.RAD_ITS ---
Exam(s) XR CHEST 2V PA LATERAL EXAM: XR CHEST 2V PA LATERAL CLINICAL HISTORY: evaluate pathology. TECHNIQUE: 2D digital imaging was performed. COMPARISON: CR CHEST 2 VIEWS PA,LAT from 01/11/2014 FINDINGS: 2 views: Heart size is normal. The mediastinum is not widened. Right lung is clear. There are vertically orientated increased markings behind the left side of the heart, probably lower lobe vessels. No obvious confluent infiltrates nor pleural effusions. No pulm onary edema. No pneumothorax. No fractures evident. IMPRESSION: Increased left lower lobe markings which are probably vascular. No confluent infiltrates evident. N o pleural effusions. DATA REPOSITORY: RADIATION DOSE DELIVERED:
== END 2024-05-16 14:17 ==
PROVIDERS: PCP Nurse Practitioner Family; Visit Provider Nurse Practitioner Family
DX: R05.9 Cough, unspecified (principal)
CPT/HCPCS: 71046

== ENCOUNTER 2024-12-08 09:14 | Outpatient (CLI) | payer MEDICARE, SELFPAY ==
[2024-12-08 09:24] LABS: Hemoglobin A1C 5.9 % (<5.7)
[2024-12-08 09:37] LABS: Anion Gap 3.4 mmol/L (3-11); BUN 15 mg/dL (7-18); CO2 32.6 mmol/L (21.0-32.0); CREATININE 1.1 mg/dL (0.70-1.30); Calcium 8.6 mg/dL (8.5-10.1); Calculated LDL 58 mg/dL (<100); Chloride 106 mmol/L (98-107); Cholesterol 122 mg/dL (<200); Estimated GFR 70.88 (mL/min/1.73m2); Glucose 105 mg/dL (74-106); HDL Cholesterol 51 mg/dL (>or=40); Sodium 142 mmol/L (136-145); Triglyceride 65 mg/dL (<150)
[2024-12-08 09:41] LABS: *AMPHETAMINES SCREEN URINE Negative (Negative); *BARBITURATES SCREEN URINE Negative (Negative); *BENZODIAZEPINES SCREEN URINE Negative (Negative); Cannabinoids THC Negative (Negative); Cocaine Screen,Urine Negative (Negative); METHADONE URINE SCREEN Negative (Negative); OPIATES URINE SCREEN Positive (Negative)
[2024-12-08 09:42] LABS: Tricyclic Antidepressants Negative (Negative)
== END 2024-12-08 09:15 | disposition home or self-care (01) ==
LOC: LBO 09:15
PROVIDERS: PCP Nurse Practitioner Family; Visit Provider Nurse Practitioner Family
DX: E78.5 Hyperlipidemia, unspecified (principal); G89.4 Chronic pain syndrome; R73.03 Prediabetes
CPT/HCPCS: 36415; 80048; 80061; 80307; 83036

== ENCOUNTER 2025-03-24 09:33 | Emergency (ER) | payer MEDICARE, SELFPAY ==
[2025-03-24 09:41] VITALS: BP 139/68; PULSE 81; RESP 14; TEMP 36.7; O2SAT 96
[2025-03-24] MEDS: Doxycycline Hyclate 100 MG CAP 200 MG PO (09:56)
--- NOTE | 2025-03-24 11:43 | W.ED.GENAD ---
Discharge Plan Disposition Patient Disposition: Home Condition: Stable Discharge Details Clinical Impression: Tick bite Primary Care Provider: Mery Peter ED Provider: Azul Romano Home Meds and New Rx's Prescriptions: No Action albuterol sulfate [ProAir HFA] 90 mcg/actuation HFA aerosol inhaler 2 puff Inhalation Q6H PRN Qty: 1 4RF naloxone [Narcan] 4 mg/actuation spray,non-aerosol 1 spray intranasal Q2-3M PRN (Reason: opioid overdose) Qty: 2 4RF Rx Instructions: spray 1 dose into ONE nostril; alternate nostrils w each dose until help arrives triamcinolone acetonide 0.1 % cream 1 applic Topical DAILY PRN (Reason: dermatitis) Qty: 30 2RF Rx Instructions: Apply to hands once a day as needed for rash hydrocodone-acetaminophen 5-325 mg tablet 1 tab PO BID MDD 2 tabs PRN (Reason: pain) Qty: 56 0RF Discharge Instructions Additional Instructions: TICK REMOVED EASILY PROPHYLACTIC DOSE OF DOXYCYCLINE GIVEN FOLLOW UP WITH PCP IF YOU DEVELOP FEVERS, JOINT PAINS, RASH OR OTHER CONCERNS Discharge Data Discharge Date/Time-TO BE ENTERED AT DEPARTURE: 03/24/25 09:59 HPI General Date/Time Provider Initiated Documentation: 03/24/25 09:46. Limitations to Documentation: no limitations. Information obtained by: patient. HPI Narrative: 75-year-old gentleman with no significant past medical history presents for evaluation of a tick in his right ear. He states every morning he puts vitamin EE oil in his ear and did not note the tick this morning, but family member saw it this afternoon. He denies any fever chills arthralgias. Related Data Home Medications ?Medication ?Instructions ?Recorded ?Confirmed albuterol sulfate 90 mcg/actuation 2 puff inhalation Q6H PRN ##1 07/05/21 03/24/25 aerosol inhaler (ProAir HFA) naloxone 4 mg/actuation nasal 1 spray intranasal Q2-3M PRN 08/22/22 03/24/25 spray (Narcan) opioid overdose #2 ea triamcinolone acetonide 0.1 % 1 applic topical DAILY PRN 12/30/23 03/24/25 topical cream dermatitis #30 grams hydrocodone 5 mg-acetaminophen 325 1 tab PO BID PRN pain #56 tabs 03/17/25 03/24/25 mg tablet Previous Rx's ?Medication ?Instructions ?Recorded albuterol sulfate 90 mcg/actuation 2 puff inhalation Q6H PRN ##1 07/05/21 aerosol inhaler (ProAir HFA) naloxone 4 mg/actuation nasal 1 spray intranasal Q2-3M PRN 08/22/22 spray (Narcan) opioid overdose #2 ea triamcinolone acetonide 0.1 % 1 applic topical DAILY PRN 12/30/23 topical cream dermatitis #30 grams hydrocodone 5 mg-acetaminophen 325 1 tab PO BID PRN pain #56 tabs 03/17/25 mg tablet Allergies Allergy/AdvReac Type Severity Reaction Status Date / Time prednisone AdvReac Intermediate hair Verified 03/24/25 09:44 loss/lethargic codeine AdvReac Mild makes me a Verified 03/24/25 09:44 little hot General Stated Complaint: InsectBite DEANNA: 4 Exam Narrative Exam Narrative: Review of Systems: All systems reviewed & are unremarkable except as noted in HPI and below Well-developed, no acute distress NCAT Inside the pinna of the right ear is a tick Course Vital Signs Vital signs: Vital Signs Temperature 36.7 C 03/24/25 09:41 Pulse 81 03/24/25 09:41 Respiratory Rate 14 03/24/25 09:41 Blood Pressure 139/68 03/24/25 09:41 Pulse Oximetry 96 03/24/25 09:41 Temperature 36.7 C 03/24/25 09:41 Temperature Source Oral 03/24/25 09:41 Pulse 81 03/24/25 09:41 Respiratory Rate 14 03/24/25 09:41 Blood Pressure 139/68 03/24/25 09:41 Blood Pressure Position Sitting 03/24/25 09:41 Pulse Oximetry 96 03/24/25 09:41 Procedure Foreign Body Removal Location of procedure: Other (Right earlobe, tic. Forceps used, head intact) Medical Decision Making Emergent evaluation of tick bite. Tick localized to the right ear, tick is fairly large but not engorged. The patient had the tick removed and tick removed intact, tolerated procedure well. Single dose of prophylactic doxycycline given. Discharged in good condition. PFSH All Active Problems (Updated 03/24/25 @ 09:48 by Azul Romano MD) Tick bite (Acute) Chronic pain syndrome (Chronic) Degenerative joint disease (DJD) of lumbar spine (Chronic) Prediabetes (Chronic) Mild intermittent asthma (Chronic) Hand dermatitis (Chronic) Nail dystrophy (Chronic) Medical History Depressive disorder Alopecia Family History Mother , AGE 73 Substance abuse Depression Heart disease Hyperlipidemia Asthma Hypertension Father , AGE 72 Alcohol abuse Prostate cancer Sister Substance abuse Depression Hyperlipidemia Schizophrenia Sister No problems noted. Brother Heart disease Stroke Brother Agent orange exposure Asthma Brother , from pneumonia No problems noted. Brother Parkinson disease Maternal Grandfather Heart disease Maternal Grandmother Bladder cancer Paternal Grandfather Heart disease Paternal Grandmother Heart disease Social History Smoking/Tobacco Use Status: Never Second Hand Exposure: No Smoking risk assessment performed?: Yes Alcohol Intake: former Drug use: Never Substance use type: does not use Adopted: No Caregiver/Support person: No Foster care: No Household members: none Housing: apartment Number of Children: 0 number of grandchildren: 3 Communication Needs: None Education Level: high school Do you need help understanding health information?: Never current occupation: Retired/work 3 part-time jobs Pets and animals: No Sexually active: No Do you think of yourself as: straight/heterosexual Current gender identity: male What is your relationship status?: never How often do you get together with friends or relatives?: three or more times per week How often do you attend denominational or restoration services?: 1-3 times per year Do you belong to any clubs or organized social groups?: no Panel score (0-1 are the most socially isolated patients): 1 Gilda/Faith: Religion Special gilda needs: No Working smoke detector in home: Yes Firearms in home: No Do you feel safe at home: Yes Do you feel safe in your relationship?: Yes Victim of physical abuse: No Victim of emotional abuse: No Victim of sexual abuse: No
== END 2025-03-24 09:59 | disposition home or self-care (01) ==
LOC: ER 09:49
PROVIDERS: Emergency Provider Emergency Medicine; PCP Nurse Practitioner Family
DX: T16.1XXA Foreign body in right ear, initial encounter (principal); W44.F4XA Insect entering into or through a natural orifice, initial encounter
CPT/HCPCS: 99283